=== PATIENT | male | born 1950 | race Caucasian/White ===

== ENCOUNTER 2018-03-02 13:41 | Outpatient (RCR) | payer MEDICARE, BC | END 2018-03-30 | disposition home or self-care (01) | LOC: PTY 13:41 | DX: M72.2 Plantar fascial fibromatosis (principal); M67.02 Short Achilles tendon (acquired), left ankle; M67.01 Short Achilles tendon (acquired), right ankle; E11.9 Type 2 diabetes mellitus without complications | CPT/HCPCS: 97110; 97140; 97162; G8981; G8982 ==